=== PATIENT | male | born 1985 | race Caucasian/White ===

== ENCOUNTER 2017-04-12 06:01 | Day surgery (SDC) | payer BC ==
[~2017-04-12 06:01] MED LIST: Lactated Ringers 1,000 ML IV SCH
[2017-04-12] MEDS ORDERED: Lactated Ringers 1,000 ML IV ONE ×2 (06:07→07:54)
[2017-04-12] MEDS ORDERED: Ketamine HCl 50 MG/ML IV ONE (08:00)
[2017-04-12] MEDS ORDERED: DIPRIVAN 200 MG/20 ML IV ONE (08:00)
[2017-04-12 10:52] VITALS: O2SAT 97
[2017-04-12 10:56] VITALS: BP 124/77; PULSE 81
--- NOTE | 2017-04-12 13:01 | OP ---
SURGERY DATE: 04/12/17 SURGERY TIME: 735 PREOPERATIVE DIAGNOSIS: 1. EPIGASTRIC PAIN. POSTOPERATIVE DIAGNOSIS: 1. MILD GASTRITIS. PROCEDURE: 1. Esophagogastroduodenoscopy with biopsy. SURGEON: Dr. Oliva. ANESTHESIA: MAC, medication given by the Anesthesia Department. BRIEF HISTORY: The patient is a 31 y/o WM patient who presents now for endoscopic evaluation. He had previously been diagnosed with Helicobacter pylori gastritis on endoscopy procedure over a year ago. He was treated successfully, but now has recurrent problems. The patient was felt to need to have reinvestigation. He was reappraised of the risks of the procedure including the risk of perforation, phlebitis, untoward reaction to medication, bleeding, and missed lesions. The patient verbalized his understanding and desired to have the procedure performed. DESCRIPTION OF PROCEDURE: The patient was given the medications by the Anesthesia Department. He had continuous pulse oximetry, ECG monitoring, intermittent BP monitoring, and end tidal CO2 monitoring during the examination. He was placed in the left lateral decubitus position. A bite block was placed and the flexible Olympus gastroscope was used to intubate the oropharynx. The scope was easily introduced in the esophagus which appeared to be normal throughout its length. The stomach was entered where normal gastric rugal folds were seen and these distended nicely with the insufflation of air. The scope was passed along the greater curvature of the stomach to the antrum. The pylorus was encountered and intubated. The duodenum was inspected and found to be normal. The scope was withdrawn towards the stomach. Again, a retroflex view was obtained of the lesser curvature, fundus, and cardia regions of the stomach and these appeared to be essentially normal. The scope was then redirected towards the gastric antrum and biopsies were obtained to rule out the presence of Helicobacter pylori type organisms. The scope was then removed from the patient who tolerated the procedure well and was sent back to outpatient recovery in good condition.
== END 2017-04-12 09:00 | disposition home or self-care (01) ==
LOC: SDC 06:01
PROVIDERS: ATTEND Family Medicine
PROC: 0DB78ZX Excision of Stomach, Pylorus, Via Natural or Artificial Opening Endoscopic, Diagnostic (ICD-10-PCS; principal; 2017-04-12)
DX: K29.70 Gastritis, unspecified, without bleeding (principal)
CPT/HCPCS: 00740; 36415; 88305; J2704